=== PATIENT | male | born 1955 | race Two or more races ===

== ENCOUNTER 2018-11-10 16:32 | Emergency (ER) | payer MEDICAID ==
[2018-11-10 20:00] VITALS: BP 130/67
== END 2018-11-10 21:22 | disposition home or self-care (01) ==
LOC: ER 16:36
DX: Z46.6 Encounter for fitting and adjustment of urinary device (principal); Z89.612 Acquired absence of left leg above knee; Z48.00 Encounter for change or removal of nonsurgical wound dressing; Z98.890 Other specified postprocedural states; J44.9 Chronic obstructive pulmonary disease, unspecified; E11.9 Type 2 diabetes mellitus without complications; K21.9 Gastro-esophageal reflux disease without esophagitis; I10 Essential (primary) hypertension; F20.9 Schizophrenia, unspecified; M19.90 Unspecified osteoarthritis, unspecified site; Z87.891 Personal history of nicotine dependence; Z87.11 Personal history of peptic ulcer disease; Z87.440 Personal history of urinary (tract) infections
CPT/HCPCS: 51702

== ENCOUNTER 2019-08-06 08:29 | Inpatient (IN) | payer MEDICAID ==
[~2019-08-06] VITALS: Ht 170.2 cm; Wt 46.1 kg
[2019-08-06] MEDS ORDERED: SODIUM CHLORIDE 0.9% 500 ML IVB ONE (08:40)
[2019-08-06] MEDS ORDERED: ONDANSETRON HCL 4 MG/2 ML VIAL IV ONE (08:45)
[2019-08-06] MEDS ORDERED: HYDROmorphone HCL 2 MG/ML VL IV ONE (08:45)
[2019-08-06 09:45] LABS: Basophils # (auto) 0 uL; Basophils % (auto) 0.4 % (0.0-2.0); Eosinophils # (auto) 0 uL; Eosinophils % (auto) 0.1 % (0.0-7.0); Hematocrit 38.9 % (41.0-53.0); Hemoglobin 13.5 g/dL (13.5-17.5); Lymphocytes # (auto) 0.7 uL; Lymphocytes % (auto) 6.1 % (10.0-50.0); Mean Corpuscular Hemoglobin 32.1 pg (28.0-32.0); Mean Corpuscular Hgb Conc. 34.6 g/dL (32.0-36.0); Mean Corpuscular Volume 92.7 fL (80.0-100.0); Monocytes # (auto) 0.5 uL; Monocytes % (auto) 4.3 % (0.0-12.0); Neutrophils # (auto) 9.5 uL; Neutrophils % (auto) 89.1 % (37.0-80.0); Nucleated Red Blood Cells % 0.1 %; Platelet Count (auto) 168 10^3/uL (140-450); Red Cell Distribution Width 14.2 % (11.8-14.3); White Blood Cell 10.7 10^3/uL (4.4-10.8)
[2019-08-06 09:46] LABS: Albumin 3.3 g/dL (3.4-5.0); Calcium 9.7 mg/dL (8.5-10.1); Potassium 4.3 mmol/L (3.5-5.1)
[2019-08-06 09:49] LABS: Lactic Acid w/Reflex 2.3 mmol/L (0.4-2.0)
[2019-08-06 09:50] LABS: BUN/Creatinine Ratio 72.9; Bilirubin, Total 0.5 mg/dL (0.2-1.0); Total Protein 8.1 g/dL (6.4-8.2)
[2019-08-06 10:00] LABS: Urine Bacteria MANY /hpf (None Seen); Urine Blood 3+ /uL (Negative); Urine Mucus FEW (None Seen); Urine Specific Gravity 1.017 (1.001-1.035); Urine WBC 167 /hpf (0 - 3)
[2019-08-06] MEDS ORDERED: traMADol HCL 50 MG TAB PO PRN (10:30)
[2019-08-06] MEDS ORDERED: TEMAZEPAM 15 MG CAP PO PRN (10:30)
[2019-08-06] MEDS ORDERED: cefTRIAXone 1GM/50ML D5W 50 ML IV ONE (10:30)
[2019-08-06] MEDS ORDERED: DEXTROSE (50%) 50ML SYRG IV PRN (10:30)
[2019-08-06] MEDS ORDERED: ACETAMINOPHEN 500 MG TAB PO PRN (10:30)
[2019-08-06] MEDS ORDERED: PROMETHAZINE HCL 25 MG/ML 1ML IV PRN (10:30)
[2019-08-06] MEDS: SODIUM CHLORIDE 0.9% 1,000 ML IV SCH ×2 (11:42→21:54)
[2019-08-06] MEDS: FAMOTIDINE (10MG/ML) 2ML VL IV SCH ×2 (12:26→21:50)
[2019-08-06] MEDS: ACCU-CHEK COMFORT CURVE STRIP VI SCH ×3 (12:26→21:54)
[2019-08-06] MEDS: InsuLIN REG 1unit/0.01ml Soln (100units/ml) SC SCH ×3 (12:26→21:54)
--- NOTE | 2019-08-06 17:27 | NUR ---
[facility] admit from ER DAY,VALERI Peterson admitted to [facility] after SBAR received. Patient oriented to CHANI CARMONA, primary RN, unit, room, bed, and unit policies regarding patient care and visiting hours. Patient weighed by bedscale and encouraged to call if they need something. All questions and concerns addressed, patient verbalized understanding.
--- NOTE | 2019-08-06 17:31 | NUR ---
RECEIVED REPORT FROM STEPHANIE GAUTAM.
[2019-08-06 18:01] VITALS: BP 110/52
--- NOTE | 2019-08-06 19:30 | NUR ---
Opening shift note Patient in bed alert and oriented x 4, verbally coherent, able to make needs known. Patient denies pain and discomfort at this time. Plan of care discussed, patient verbalized understanding. All needs attended, will continue to monitor.
[2019-08-06 22:00] VITALS: BP 103/53
[2019-08-06] MEDS: NYSTATIN TOPICAL POWDER 15GM TOP SCH (22:13)
[2019-08-07 05:26] VITALS: BP 102/57
[2019-08-07] MEDS: ACCU-CHEK COMFORT CURVE STRIP VI SCH ×4 (06:01→22:03)
[2019-08-07] MEDS: InsuLIN REG 1unit/0.01ml Soln (100units/ml) SC SCH ×4 (06:01→22:00)
[2019-08-07 06:19] LABS: Basophils # (auto) 0 uL; Basophils % (auto) 0.7 % (0.0-2.0); Eosinophils # (auto) 0.1 uL; Eosinophils % (auto) 2.4 % (0.0-7.0); Hematocrit 30.4 % (41.0-53.0); Hemoglobin 10.6 g/dL (13.5-17.5); Lymphocytes # (auto) 1.3 uL; Lymphocytes % (auto) 23.8 % (10.0-50.0); Mean Corpuscular Hemoglobin 32.8 pg (28.0-32.0); Mean Corpuscular Volume 93.7 fL (80.0-100.0); Monocytes # (auto) 0.4 uL; Monocytes % (auto) 7.4 % (0.0-12.0); Neutrophils # (auto) 3.6 uL; Neutrophils % (auto) 65.7 % (37.0-80.0); Nucleated Red Blood Cells % 0.1 %; Platelet Count (auto) 144 10^3/uL (140-450); Red Blood Cells 3.25 10^6/uL (4.5-5.90); Red Cell Distribution Width 14.5 % (11.8-14.3); White Blood Cell 5.4 10^3/uL (4.4-10.8)
--- NOTE | 2019-08-07 06:28 | NUR ---
Patient complaining of mild body pain. Patient on a clear liquid diet, pt has acetaminophen for pain, pt doesn't want to have it crushed, per patient will try to swallow it whole with apple juice. Nurse at bedside, assisted patient with medication. Pt able to swallow medication without incident. Will continue to monitor.
[2019-08-07 06:32] LABS: Albumin 2.5 g/dL (3.4-5.0); Calcium 8.4 mg/dL (8.5-10.1); Potassium 3.4 mmol/L (3.5-5.1)
[2019-08-07 06:36] LABS: BUN/Creatinine Ratio 88.6; Bilirubin, Total 0.3 mg/dL (0.2-1.0); Total Protein 6.4 g/dL (6.4-8.2)
--- NOTE | 2019-08-07 06:53 | NUR ---
Home medication Per patient, not taking any home meds.
--- NOTE | 2019-08-07 07:45 | NUR ---
OPENING SHIFT NOTE: Received report from NOC RNMandy. Assumed care of patient. Patient laying in bed, states pain is 5/10 and is tolerable. Bed in lowest position, rails x2 up and call light within reach. Updated on plan of care. Will continue to monitor.
[2019-08-07 09:00] VITALS: BP 105/52
[2019-08-07] MEDS ORDERED: cefTRIAXone 1GM/50ML D5W 50 ML IV SCH (09:00)
[2019-08-07] MEDS: FAMOTIDINE (10MG/ML) 2ML VL IV SCH ×2 (11:00→22:30)
[2019-08-07] MEDS: NYSTATIN TOPICAL POWDER 15GM TOP SCH ×2 (11:00→22:00)
--- NOTE | 2019-08-07 11:00 | NUR ---
FAMILY: Family at bedside. Updated on POC.
--- NOTE | 2019-08-07 11:27 | NUR ---
UROLOGY: VENANCIO Romano at bedside to discuss POC with patient and family.
--- NOTE | 2019-08-07 11:40 | NUR ---
assessment re: consult needs caregiver Patient is a 63 year old male who is alert and oriented. Patients cognitive abilities are intact. Prior to admission patient lived home with family and functioned with assistance. Per patient he will return home to his prior living arrangements post discharge and his nephew Alonso will transport him home. Patient has a ss consult for needing caregiver. I provided patient with resources for [facility] caregiver. Patient has a wheelchair and hospital bed for home use. Patient feels safe returning home on discharge. I informed patient he has a right to speak to a hoist worker regarding all care. I informed patient he has a right to participate in any and all discharge planning. Patient is aware of visiting hours on the hospital floor. I informed patient he has a right to privacy. Patient has a POA and advanced directive. Patient verbalized understanding and agreed to discharge plan. Addendum: 08/10/19 at 1141 by Deisi MAHARAJ Amended: Links added.
--- NOTE | 2019-08-07 12:14 | NUR ---
WOUND CARE NOTE: Wound Care in to see patient per wound care request regarding "Rt. knee skin tear" that are noted present on admission. Bedside nurse took photograph of patient's wounds upon admission for reference. Patient is 63 years old male admitted for Abdominal Pain. He has history of anemia, arthritis, asthma, COPD,CVA, Depression, DM, GERD, htn, PUD, Schizophrenia and UTI. 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 Patient is resting in bed in Rm. 239A. He's awake, alert and oriented. He's in no stated pain at this time. He's contracted but he's able to assist in turning and repositioning by grabbing onto bed rails. His current Prieto score is 13. Noted patient's Rt knee has 1.5x2cm open partial thickness wound and to his Rt lower leg just below the knee is 7x5cm open partial thickness wound. Wounds are red with pink raeann wound, scant sanguineous drainage noted, no odor noted. Patient is not aware how he got the Rt lower leg wound and states could be from rubbing off from bed. Cleansed Rt knee and lower leg wounds with wound cleanser,patted dry with gauze, applied Thera honey gel and covered with Opti foam gentle dressing. Patient's sacrum has intact pink collagen scar, history of sacral pressure injury. Patient is thin, weighs 46.1 kg, and he has prominent coccyx bone. Raeann care given, applied barrier cream to sacral, buttocks and covered with upper sacrum with Opti foam sacral dressing as preventative. Patient's Lt AKA stump has well healed scar. Patient's education given regarding skin/ wound care, wound healing and skin protection measures. Patient verbalized understanding. Repositioned patient for comfort facing his Rt side, redistributed pressure points with pillows. Bed in low position, call snell within reach,bed alarm on. RECOMMENDATION: BID/PRN cleaning and application of barrier cream to sacrum with application of Opti foam sacral dressing as preventative, dietary consult, Q3D/PRN dressing change to Rt knee, lower leg wounds per MD order, frequent turning and repositioning schedule as condition permits, redistribute pressure points with pillows, air mattress (ordered ), continue monitoring by wound care while patient is hospitalized. Addendum: 08/07/19 at 1618 by Lala Brady RN Amended: Links added.
--- NOTE | 2019-08-07 12:22 | NUR ---
Nutrition Assessment Notes please see attached link for complete assessment Est. Needs based on IBW (67 kg): [address] kcal (23-25 kcal/kgBW r/t BKA), 67-80 gms pro (1.0-1.2 gms/kgBW r/t wound). Will continue to monitor pertinent labs and reassess nutrient need prn Addendum: 08/07/19 at [address] Amended: Links added.
--- NOTE | 2019-08-07 12:25 | NUR ---
MD: Dr Carvalho at bedside to see patient. Plan to discharge patient home later today.
[2019-08-07 13:00] VITALS: BP 102/48
--- NOTE | 2019-08-07 16:20 | NUR ---
FAMILY: Spoke to Alonso, patient's family on phone. Made family aware of patient's discharge. Family states will be in later this evening, after 7. To bring patient home.
[2019-08-07 17:00] VITALS: BP 105/47
--- NOTE | 2019-08-07 19:29 | NUR ---
CLOSING SHIFT NOTE: Report given to NOC RNMandy. Endorsed care of patient.
[2019-08-07 19:31] VITALS: BP 95/44
--- NOTE | 2019-08-07 20:11 | NUR ---
Opening notes Received report from noc RN, Mandy. Assumed care of patient. Patient laying in bed, states pain is 0/10 and . Bed in lowest position, rails x2 up and call light within reach. HOB 20 degrees. Discussed POC with patient. Will continue to monitor. Called son to update on POC.
[2019-08-07 20:19] VITALS: BP 95/44
--- NOTE | 2019-08-07 21:50 | NUR ---
FAMILY NEPHEWTANG, AT BEDSIDE. BROUGHT CLOTHES FOR PATIENT, AND TOOK PRESCRIPTION TO FIBER WORKER FROM PHARMACY.
== END 2019-08-07 23:36 | disposition home or self-care (01) | DRG 466 ==
LOC: EDBD 08:29 → ER 08:32 → OVERFLOW 08:33 → EAST 17:27
PROVIDERS: ADMIT Internal Medicine; ATTEND Internal Medicine
DX: T83.511A Infection and inflammatory reaction due to indwelling urethral catheter, initial encounter (principal); Z89.612 Acquired absence of left leg above knee; E44.1 Mild protein-calorie malnutrition; F20.9 Schizophrenia, unspecified; Z93.1 Gastrostomy status; N21.0 Calculus in bladder; K80.20 Calculus of gallbladder without cholecystitis without obstruction; K57.30 Diverticulosis of large intestine without perforation or abscess without bleeding; I70.8 Atherosclerosis of other arteries; I10 Essential (primary) hypertension; F32.9 Major depressive disorder, single episode, unspecified; Z74.01 Bed confinement status; Z89.511 Acquired absence of right leg below knee
CPT/HCPCS: 36415; 74176; 80053; 81001; 82150; 82962; 83036; 83605; 83690; 85025; 87040; 87081; 87086; 94761; 96361; 96365; 96375; G0378; J0696; J2405; J3490

== ENCOUNTER 2021-04-29 12:57 | Inpatient (IN) | payer MEDICAID ==
[~2021-04-29] VITALS: Ht 185.4 cm; Wt 52.6 kg
[~2021-04-29 12:57] MED LIST: LEVO-28 PO
[2021-04-29] MEDS ORDERED: SODIUM CHLORIDE 0.9% 1,000 ML IV ONE (13:30)
[2021-04-29 14:12] LABS: Basophils # (auto) 0.1 10 ^3/uL (0-0.2); Hematocrit 18.4 % (41.0-53.0); Monocytes # (auto) 0.3 10 ^3/uL (0-1.3); Monocytes % (auto) 3.4 % (0.0-12.0); Neutrophils # (auto) 6.4 10 ^3/uL (1.6-8.6)
[2021-04-29 14:14] LABS: Eosinophils # (auto) 0 10 ^3/uL (0-0.8); Eosinophils % (auto) 0.6 % (0.0-7.0); Lymphocytes # (auto) 1.2 10 ^3/uL (0.4-5.4); Lymphocytes % (auto) 15.4 % (10.0-50.0); Mean Corpuscular Hemoglobin 32.8 pg (28.0-32.0); Mean Corpuscular Hgb Conc. 34.2 g/dL (32.0-36.0); Mean Corpuscular Volume 96.1 fL (80.0-100.0); Neutrophils % (auto) 79.6 % (37.0-80.0); Red Blood Cells 1.91 10^6/uL (4.5-5.90); Red Cell Distribution Width 15.7 % (11.8-14.3); White Blood Cell 8.1 10^3/uL (4.4-10.8)
[2021-04-29 14:22] LABS: Hemoglobin 6.3 g/dL (13.5-17.5)
[2021-04-29 14:35] LABS: Albumin 2.4 g/dL (3.4-5.0); Anion Gap 5 (5-15); Calcium 7.8 mg/dL (8.5-10.1); Carbon Dioxide 24 mmol/L (21-32); Chloride 110 mmol/L (98-107); Glucose 194 mg/dL (74-106); Lipase 39 U/L (73-393); Potassium 4.1 mmol/L (3.5-5.1); Sodium 139 mmol/L (136-145)
[2021-04-29 14:42] LABS: Alanine Aminotransferase 29 U/L (16-61); Alkaline Phosphatase 61 U/L (45-117); Aspartate Aminotransferase 10 U/L (15-37); BUN/Creatinine Ratio 165.3; Bilirubin, Total 0.2 mg/dL (0.2-1.0); GFR African American 220 mL/min; GFR Non-African American 182 mL/min; Total Protein 6.3 g/dL (6.4-8.2)
[2021-04-29 15:00] LABS: Blood Urea Nitrogen 81 mg/dL (7-18)
[2021-04-29 15:11] LABS: Lactic Acid w/Reflex 2.1 mmol/L (0.4-2.0)
[2021-04-29] MEDS ORDERED: PANTOPRAZOLE 40mg/50ML NS AE 50 ML IV ONE (16:30)
[2021-04-29] MEDS ORDERED: PANTOPRAZOLE 40 MG/10 ML VIAL INJ IV ONE (16:30)
[2021-04-29 17:05] VITALS: BP 118/67
[2021-04-29 17:06] LABS: INR 1.35 (0.9-1.15)
[2021-04-29] MEDS ORDERED: NITROGLYCERIN 0.4 MG SL TAB SL PRN (17:15)
[2021-04-29] MEDS ORDERED: PROMETHAZINE HCL 25 MG/ML 1ML IV PRN (17:15)
[2021-04-29] MEDS ORDERED: MORPHINE SULF INJ 2 MG/ML SYRINGE 1ML IV PRN ×3 (17:15)
[2021-04-29] MEDS ORDERED: cefTRIAXone 1GM/50ML D5W 50 ML IV ONE (17:15)
[2021-04-29 17:20] VITALS: BP 117/60
[2021-04-29 18:23] LABS: Urine Amorphous Crystal FEW /hpf (None Seen); Urine Bacteria MANY /hpf (None Seen); Urine Blood TRACE /uL (Negative); Urine WBC 177 /hpf (0 - 3); Urine WBC Clumps PRESENT /hpf (None Seen)
[2021-04-29] MEDS: SODIUM CHLORIDE 0.9% 1,000 ML IV SCH (18:26)
[2021-04-29 18:49] VITALS: BP 112/63
[2021-04-29] MEDS ORDERED: phytonadione 2.5 MG in SODIUM CHL 0.9% 50 ML IV ONE (19:30)
[2021-04-29 21:49] VITALS: BP 114/54
[2021-04-29 22:15] VITALS: BP 113/55
[2021-04-29 22:37] VITALS: BP 99/55
[2021-04-29 23:32] LABS: Hematocrit 29.1 % (41.0-53.0)
[2021-04-30] MEDS ORDERED: PANTOPRAZOLE 40mg/50ML NS AE 50 ML IV ONE ×2 (00:40→05:11)
[2021-04-30] MEDS: metroNIDAZOLE 500MG/100ML 100 ML IV SCH ×4 (00:45→21:39)
[2021-04-30 07:49] LABS: Calcium 7.4 mg/dL (8.5-10.1); Potassium 3.7 mmol/L (3.5-5.1)
[2021-04-30 07:52] LABS: BUN/Creatinine Ratio 159.4; Bilirubin, Total 0.6 mg/dL (0.2-1.0); Total Protein 5.4 g/dL (6.4-8.2)
[2021-04-30 08:01] LABS: Basophils # (auto) 0.1 10 ^3/uL (0-0.2); Basophils % (auto) 1.1 % (0.0-2.0); Eosinophils # (auto) 0.2 10 ^3/uL (0-0.8); Eosinophils % (auto) 2.4 % (0.0-7.0); Hematocrit 27.9 % (41.0-53.0); Hemoglobin 9.7 g/dL (13.5-17.5); Lymphocytes # (auto) 1.2 10 ^3/uL (0.4-5.4); Mean Corpuscular Hemoglobin 30.8 pg (28.0-32.0); Mean Corpuscular Hgb Conc. 34.6 g/dL (32.0-36.0); Mean Corpuscular Volume 89.2 fL (80.0-100.0); Monocytes # (auto) 0.3 10 ^3/uL (0-1.3); Monocytes % (auto) 5.1 % (0.0-12.0); Neutrophils # (auto) 4.9 10 ^3/uL (1.6-8.6); Neutrophils % (auto) 73.4 % (37.0-80.0); Nucleated Red Blood Cells % 0.1 %; Red Blood Cells 3.13 10^6/uL (4.5-5.90); Red Cell Distribution Width 16.2 % (11.8-14.3); White Blood Cell 6.7 10^3/uL (4.4-10.8)
[2021-04-30] MEDS ORDERED: cefTRIAXone 1GM/50ML D5W 50 ML IV SCH (09:00)
[2021-04-30] MEDS: SODIUM CHLORIDE 0.9% 1,000 ML IV SCH ×4 (09:13→21:40)
[2021-04-30] MEDS ORDERED: SIMETHICONE 40 MG/0.6 ML ORAL DROP ONE (12:49)
[2021-04-30] MEDS ORDERED: PROPOFOL 10 MG/ML 20 ML IV ONE (15:20)
[2021-04-30] MEDS ORDERED: MORPHINE SULF INJ 2 MG/ML SYRINGE 1ML IV PRN ×3 (16:00→21:45)
[2021-04-30] MEDS: PANTOPRAZOLE 40 MG/10 ML VIAL INJ IV SCH (21:39)
[2021-04-30] MEDS ORDERED: NITROGLYCERIN 0.4 MG SL TAB SL PRN (21:45)
[2021-04-30 22:00] VITALS: BP 105/52
[2021-04-30] MEDS ORDERED: PANTOPRAZOLE 40 MG/10 ML VIAL INJ IV SCH (22:00)
[2021-05-01 05:00] VITALS: BP 108/58
[2021-05-01] MEDS: metroNIDAZOLE 500MG/100ML 100 ML IV SCH ×3 (05:09→21:08)
[2021-05-01] MEDS: SODIUM CHLORIDE 0.9% 1,000 ML IV SCH ×2 (05:09→13:57)
[2021-05-01] MEDS: cefTRIAXone 1GM/50ML D5W 50 ML IV SCH (08:58)
[2021-05-01] MEDS: MORPHINE SULF INJ 2 MG/ML SYRINGE 1ML IV PRN (08:59)
[2021-05-01] MEDS: PANTOPRAZOLE 40 MG/10 ML VIAL INJ IV SCH ×2 (08:59→21:08)
[2021-05-01] MEDS: PROMETHAZINE HCL 25 MG/ML 1ML IV PRN ×2 (08:59→19:14)
[2021-05-01 09:00] VITALS: BP 105/64
[2021-05-01 13:00] VITALS: BP 116/60
[2021-05-01] MEDS: SUCRALFATE 1 GM/10 ML ORAL SUSP GT SCH ×3 (13:57→21:08)
[2021-05-01 17:00] VITALS: BP 102/57
[2021-05-01 21:43] VITALS: BP 112/52
[2021-05-02] MEDS: SODIUM CHLORIDE 0.9% 1,000 ML IV SCH ×3 (00:22→13:45)
[2021-05-02] MEDS: PROMETHAZINE HCL 25 MG/ML 1ML IV PRN ×4 (00:36→16:22)
[2021-05-02 05:00] VITALS: BP 115/49
[2021-05-02] MEDS: SUCRALFATE 1 GM/10 ML ORAL SUSP GT SCH ×3 (06:00→17:00)
[2021-05-02] MEDS: metroNIDAZOLE 500MG/100ML 100 ML IV SCH ×2 (06:00→14:00)
[2021-05-02 09:00] VITALS: BP 116/53
[2021-05-02] MEDS: cefTRIAXone 1GM/50ML D5W 50 ML IV SCH (09:03)
[2021-05-02] MEDS: PANTOPRAZOLE 40 MG/10 ML VIAL INJ IV SCH (09:03)
[2021-05-02] MEDS: MORPHINE SULF INJ 2 MG/ML SYRINGE 1ML IV PRN ×2 (11:53→16:21)
[2021-05-02 13:00] VITALS: BP 109/55
[2021-05-02 15:14] VITALS: BP 109/55
== END 2021-05-02 19:40 | disposition home health service (06) | DRG 720 ==
LOC: EDSEX 12:57 → EDBD 12:57 → ER 12:57 → TELE 17:08 → UNDODISIN 04-30 16:40 → TELE-CENTR 04-30 18:07
PROVIDERS: ADMIT Internal Medicine; ATTEND Family Medicine
PROC: 30233N1 Transfusion of Nonautologous Red Blood Cells into Peripheral Vein, Percutaneous Approach (ICD-10-PCS; 2021-04-29)
PROC: 0DB28ZX Excision of Middle Esophagus, Via Natural or Artificial Opening Endoscopic, Diagnostic (ICD-10-PCS; principal; 2021-04-30 15:15)
DX: A41.9 Sepsis, unspecified organism (principal); E43 Unspecified severe protein-calorie malnutrition; E11.21 Type 2 diabetes mellitus with diabetic nephropathy; E11.40 Type 2 diabetes mellitus with diabetic neuropathy, unspecified; D62 Acute posthemorrhagic anemia; F20.9 Schizophrenia, unspecified; E86.0 Dehydration; K22.2 Esophageal obstruction; N20.0 Calculus of kidney; J44.9 Chronic obstructive pulmonary disease, unspecified; K21.9 Gastro-esophageal reflux disease without esophagitis; K44.9 Diaphragmatic hernia without obstruction or gangrene; F32.9 Major depressive disorder, single episode, unspecified; K92.2 Gastrointestinal hemorrhage, unspecified; N39.0 Urinary tract infection, site not specified; Z20.822 Contact with and (suspected) exposure to COVID-19; M19.90 Unspecified osteoarthritis, unspecified site; I10 Essential (primary) hypertension; K86.89 Other specified diseases of pancreas; N21.0 Calculus in bladder; N32.89 Other specified disorders of bladder; Z82.49 Family history of ischemic heart disease and other diseases of the circulatory system; Z86.73 Personal history of transient ischemic attack (TIA), and cerebral infarction without residual deficits; Z68.1 Body mass index [BMI] 19.9 or less, adult; Z86.718 Personal history of other venous thrombosis and embolism; Z87.11 Personal history of peptic ulcer disease; Z87.891 Personal history of nicotine dependence; Z89.511 Acquired absence of right leg below knee; Z89.512 Acquired absence of left leg below knee; Z89.612 Acquired absence of left leg above knee; Z93.3 Colostomy status; Z93.1 Gastrostomy status
CPT/HCPCS: 36415; 71045; 74176; 80053; 81001; 82150; 83605; 83690; 83880; 84484; 85014; 85018; 85025; 85045; 85610; 86850; 86900; 86901; 86920; 87040; 87086; 87426; 93005; 96361; 96365; 96368; 96375; 99291; C9113; G0378; J0696; J2704; J3430; J3490

== ENCOUNTER 2021-07-15 14:49 | Emergency (ER) | payer MEDICAID ==
[~2021-07-15] VITALS: Ht 121.9 cm; Wt 38.6 kg
[2021-07-15 16:05] LABS: Urine WBC None Seen /hpf (0 - 3)
[2021-07-15] MEDS ORDERED: NOREPINEPHRINE 8 MG/250ML KIT 250 ML IV ONE (16:12)
[2021-07-15] MEDS ORDERED: NOREPINEPHRINE 8 MG/250ML KIT 250 ML IV SCH (16:15)
[2021-07-15 16:26] LABS: Urine Bacteria NONE SEEN /hpf (None Seen); Urine Blood 1+ /uL (Negative)
[2021-07-15 16:41] LABS: Albumin 1.9 g/dL (3.4-5.0); Calcium 7.4 mg/dL (8.5-10.1); Potassium 3.8 mmol/L (3.5-5.1)
[2021-07-15 16:46] LABS: Bilirubin, Total 0.2 mg/dL (0.2-1.0); Total Protein 5.2 g/dL (6.4-8.2)
[2021-07-15 16:53] LABS: Basophils # (auto) 0 10 ^3/uL (0-0.2); Eosinophils # (auto) 0 10 ^3/uL (0-0.8); Hematocrit 8.6 % (41.0-53.0); Lymphocytes # (auto) 1.5 10 ^3/uL (0.4-5.4); Monocytes # (auto) 0.5 10 ^3/uL (0-1.3)
[2021-07-15 16:54] LABS: Basophils % (auto) 0.4 % (0.0-2.0); Lymphocytes % (auto) 16.3 % (10.0-50.0); Mean Corpuscular Hemoglobin 27.8 pg (28.0-32.0); Mean Corpuscular Hgb Conc. 29.9 g/dL (32.0-36.0); Mean Corpuscular Volume 92.9 fL (80.0-100.0); Monocytes % (auto) 5.7 % (0.0-12.0); Neutrophils # (auto) 7.1 10 ^3/uL (1.6-8.6); Neutrophils % (auto) 77.6 % (37.0-80.0); Nucleated Red Blood Cells % 0.4 %; Red Blood Cells 0.93 10^6/uL (4.5-5.90); White Blood Cell 9.2 10^3/uL (4.4-10.8)
[2021-07-15 16:57] LABS: Hemoglobin 2.6 g/dL (13.5-17.5)
[2021-07-15] MEDS ORDERED: DOPamine 1600MCG/ML D5W 250 ML IV SCH (17:00)
[2021-07-15] MEDS ORDERED: EPINEPHrine HCL 250 ML IV SCH (17:15)
[2021-07-15] MEDS ORDERED: SODIUM BICARB 50ML SYR 150 ML in SOD CHL 0.45% 1,000 ML IV SCH (17:30)
[2021-07-15 17:38] VITALS: BP 75/46
== END 2021-07-15 18:17 ==
LOC: ER 14:49 → EDBD 14:49 → ER 18:17
DX: K92.2 Gastrointestinal hemorrhage, unspecified (principal); D64.9 Anemia, unspecified; R19.7 Diarrhea, unspecified; J44.9 Chronic obstructive pulmonary disease, unspecified; F32.9 Major depressive disorder, single episode, unspecified; E11.9 Type 2 diabetes mellitus without complications; K21.9 Gastro-esophageal reflux disease without esophagitis; F20.9 Schizophrenia, unspecified; I95.9 Hypotension, unspecified; Z86.73 Personal history of transient ischemic attack (TIA), and cerebral infarction without residual deficits; Z79.899 Other long term (current) drug therapy; Z87.11 Personal history of peptic ulcer disease; Z87.440 Personal history of urinary (tract) infections; Z89.619 Acquired absence of unspecified leg above knee; Z87.891 Personal history of nicotine dependence
CPT/HCPCS: 31500; 36415; 36556; 36600; 80053; 81001; 82805; 83690; 84484; 85025; 86850; 86900; 86901; 86920; 92950; 94002; 96365; 96366; 96368; 99291; J0171; P9016; 93005